=== PATIENT | female | born 1985 | race Caucasian/White ===

== ENCOUNTER 2016-07-25 12:49 | Outpatient (CLI) | payer MEDICAID | END 2016-07-25 12:50 | disposition home or self-care (01) | DX: R20.8 Other disturbances of skin sensation (principal); E55.9 Vitamin D deficiency, unspecified; I73.81 Erythromelalgia ==

== ENCOUNTER 2017-07-03 09:21 | Outpatient (CLI) | payer MEDICAID | END 2017-07-03 09:22 | disposition critical access hospital (66) | LOC: EMS 09:21 | PROVIDERS: ATTEND Surgery | DX: F41.9 Anxiety disorder, unspecified (principal) | CPT/HCPCS: A0425; A0429 ==

== ENCOUNTER 2017-11-01 08:51 | Outpatient (CLI) | payer OTHER ==
--- NOTE | 2017-11-01 10:52 | XRAY Report ---
3-VIEW LUMBAR SPINE: 11/01/2017 CLINICAL INDICATION: Muscle strain. COMPARISON: 11/19/2010. FINDINGS: AP, lateral, cone down views of the lumbar spine demonstrate normal height and alignment of the vertebral bodies. The disk spaces are preserved. There is no evidence of interval fracture. Minimal facet arthropathy is seen. IMPRESSION: MINIMAL FACET ARTHROPATHY. NO EVIDENCE OF FRACTURE OR SUBLUXATION. TD: 11/01/2017 10:51
== END 2017-11-01 08:52 | disposition home or self-care (01) ==
LOC: DI.N 08:51
PROVIDERS: ATTEND Nurse Practitioner
DX: S39.012A Strain of muscle, fascia and tendon of lower back, initial encounter (principal); M54.89 Other dorsalgia
CPT/HCPCS: 72100

== ENCOUNTER 2018-09-19 10:28 | Outpatient (CLI) | payer MEDICAID ==
--- NOTE | 2018-09-19 13:48 | Mammography Report ---
Reason: BREAST PAIN, LEFT Procedure Date: 09/19/2018 Accession Number: [id number] / [id number] Procedure: THERESA - Diagnostic Dig Bilat CPT Code: FULL RESULT: EXAM: Diagnostic Dig Bilat DATE: 09/19/2018 12:38 PM CLINICAL HISTORY: Diagnostic exam. History of early menses and late childbearing. History of right breast lumpectomy, benign pathology. The patient presents with pain and a palpable abnormality in the left breast. TECHNIQUE: Bilateral CC, exaggerated CC, MLO and left MLO views are obtained. Focused breast ultrasound is performed of the left and of the right breast. COMPARISON: Baseline mammogram. FINDINGS: The breasts demonstrate extremely dense parenchyma bilaterally, limiting the sensitivity of mammography. Left breast: Corresponding to the palpable marker in the left breast at 3:00 approximately 3 cm from the nipple is a 0.9 cm isodense relatively well-circumscribed nodule which demonstrates well-circumscribed borders, hypoechoic echotexture and vascularity on ultrasound, as tall as wide, suspicious. The finding is seen on 3-D MLO slice 8 and 3-D C6/7. Additionally, left breast ultrasound reveals a 1:00 lobulated wider than tall hypoechoic mass with internal vascularity 4 cm from the nipple which demonstrates an ill-defined margin inferiorly, suspicious. Furthermore, left breast ultrasound at 7:00 and 3 cm from the nipple demonstrates a gently lobulated hypoechoic 0.8 x 0.6 cm mass, possibly a lymph node, suspicious. Right breast: There is a isodense well-circumscribed mass at 9:00, 3.3 cm from the nipple which measures 2.9 x 2.7 cm on MLO slice 9 and cc slice 11 by 3-D imaging. Focused right breast ultrasound demonstrates a wider than tall hypoechoic gently lobulated vascular mass measuring up to 2.7 cm which corresponds to the mammographic finding, suspicious. IMPRESSION: Suspicious abnormality. RECOMMENDATION: Ultrasound-guided biopsy of the right breast 9:00 mass. Ultrasound-guided biopsy of the left breast at 3 sites as above. BIRADS CATEGORY 4 STANDARD QUALIFYING STATEMENTS: 1. This examination was not reviewed with the aid of Computer-Aided Detection (CAD). 2. A negative or benign imaging report should not delay biopsy if clinically suspicious findings are present. Consider surgical consultation if warrented. More than 5% of cancers are not identified by imaging. 3. Dense breasts may obscure an underlying neoplasm. 4. This examination was reviewed with the aid of 3D imaging (tomography). The patient has been scheduled to undergo biopsy the next day, 09/20/2018 following discussion with the patient's physician Dr. Zambrano.
== END 2018-09-19 10:29 | disposition home or self-care (01) ==
LOC: DI 10:28
PROVIDERS: ATTEND Obstetrics & Gynecology
DX: N64.4 Mastodynia (principal)
CPT/HCPCS: 76642; 77066

== ENCOUNTER 2018-09-20 13:46 | Outpatient (CLI) | payer MEDICAID ==
[2018-09-20] MEDS ORDERED: BUFFERED LIDOCAINE 10 ML SYRINGE ONE (14:02)
[2018-09-20] MEDS ORDERED: BUPIVACAINE 0.5%-EPI 1:200000 PF 10 ML VIAL ONE (14:04)
--- NOTE | 2018-09-20 17:01 | Mammography Report ---
Reason: BILATERAL POST CLIP IMAGES Procedure Date: 09/20/2018 Accession Number: [id number] / [id number] Procedure: THERESA - Diagnostic Dig Bilat CPT Code: FULL RESULT: PROCEDURE: Ultrasound-guided needle biopsy right and left breast mass. CLINICAL DATA: Targeted mass measuring 2.9 cm with smooth margins in the 9 o'clock axis of the right breast. Informed consent was obtained. Using standard aseptic technique, both 1% buffered lidocaine and Sensorcaine were injected into the right breast for local anesthesia. A small zain was made in the skin with a #11 blade. A 12-gauge Celero vacuum-assisted device was used to obtain 3 specimens. A specialized biopsy marker clip was placed into the biopsy cavity under ultrasound guidance. Targeted mass measuring 0.9 cm with smooth margins in the 3 o'clock axis of the left breast. Using standard aseptic technique, both 1% buffered lidocaine and Sensorcaine were injected into the left breast for local anesthesia. A small zain was made in the skin with a #11 blade. A 12-gauge Celero vacuum-assisted device was used to obtain 2 specimens. A specialized biopsy marker clip was placed into the biopsy cavity under ultrasound guidance. Targeted mass measuring 1.4 cm with smooth margins in the 1 o'clock axis of the left breast. Using standard aseptic technique, both 1% buffered lidocaine and Sensorcaine were injected into the left breast for local anesthesia. A small zain was made in the skin with a #11 blade. A 12-gauge Celero vacuum-assisted device was used to obtain 2 specimens. A specialized biopsy marker clip was placed into the biopsy cavity under ultrasound guidance. The patient was taken to separate mammography machine and a two-view digital mammography was performed to verify the clip placement and any complications. The mammography showed concordant clip placement. The wound was dressed and ice applied. The patient was observed for approximately 15 minutes, then was discharged from diagnostic imaging Department in good condition following instructions on wound care and obtaining biopsy results. The patient is scheduled to receive the biopsy results from the referring physician. The tissue was sent for histologic analysis. A left breast 7:00 previously apparent lesion demonstrated the appearance of musculoskeletal chest wall tissue near the costochondral junction without suspicious features on today's ultrasound. The decision was made not to perform biopsy at this site. IMPRESSION: Ultrasound-guided biopsy of the right and left breast. AN ADDENDUM WILL BE MADE TO THIS REPORT WHEN PATHOLOGY IS REVIEWED TO ESTABLISH CONCORDANCE.
[2018-09-20] MEDS ORDERED: BUPIVACAINE 0.5%-EPI 1:200000 PF 10 ML VIAL SUBQ ONE (17:22)
[2018-09-20] MEDS ORDERED: BUFFERED LIDOCAINE 10 ML SYRINGE IU ONE (17:33)
== END 2018-09-20 13:47 | disposition home or self-care (01) ==
LOC: DI 13:46
PROVIDERS: ATTEND Obstetrics & Gynecology
DX: N60.12 Diffuse cystic mastopathy of left breast (principal); N60.11 Diffuse cystic mastopathy of right breast
CPT/HCPCS: 19083; 19084; 77066

== ENCOUNTER 2020-08-10 08:00 | Outpatient (CLI) | payer BC, MEDICAID ==
[2020-08-11 10:11] LABS: MUDS CUTOFF CONCENTRATIONS CUTOFF CONC BELOW:
[2020-08-11 10:29] LABS: BILIRUBIN,URINE NEGATIVE (NEGATIVE); GLUCOSE, URINE (UA) NEGATIVE (NEGATIVE); KETONES,URINE (UA) NEGATIVE (NEGATIVE); LEUKOCYTE ESTERASE, URINE NEGATIVE (NEGATIVE); NITRITE,URINE NEGATIVE (NEGATIVE); OCCULT BLOOD,URINE NEGATIVE (NEGATIVE); PROTEIN,URINE NEGATIVE (NEGATIVE); UROBILINOGEN,URINE 0.2 (NORMAL) E.U./dL (NORMAL)
[2020-08-11 10:35] LABS: CLARITY,URINE CLOUDY (CLEAR)
[2020-08-11 10:57] LABS: BACTERIA,URINE Few /HPF (None Seen); RBC,URINE 0-5 /HPF (0-5); SQUAMOUS EPITHELIAL CELL,UR FEW Squamous (<= Few)
[2020-08-11 11:06] LABS: AMPHETAMINE SCREEN,URINE NEGATIVE (NEGATIVE); BENZODIAZEPINES SCREEN, URINE NEGATIVE (NEGATIVE); COCAINE SCREEN URINE NEGATIVE (NEGATIVE); METHADONE SCREEN, URINE NEGATIVE (NEGATIVE); METHAMPHETAMINES SCREEN, URINE NEGATIVE (NEGATIVE); OPIATE SCREEN, URINE NEGATIVE (NEGATIVE); OXYCODONE SCREEN, URINE NEGATIVE (NEGATIVE); PROPOXYPHENE SCREEN, URINE NEGATIVE (NEGATIVE); TRICYCLIC ANTIDEPRESSANT,URINE NEGATIVE (NEGATIVE)
== END 2020-08-10 23:59 | disposition home or self-care (01) ==
LOC: LAB.R 08:00
PROVIDERS: ATTEND Obstetrics & Gynecology
DX: Z32.01 Encounter for pregnancy test, result positive (principal)
CPT/HCPCS: 80306; 81001; 87086

== ENCOUNTER 2020-08-17 16:57 | Outpatient (CLI) | payer MEDICAID, BC ==
--- NOTE | 2020-08-18 15:50 | Ultrasound Report ---
PROCEDURE: OB First Trimester w/TV INDICATIONS: POSITIVE TEST OUTSIDE/PRIOR DATING DATA: Last menstrual period (LMP): 07/06/2020. LMP-based estimated date of delivery (ALINA): 04/12/2021. First dating scan (date and location): 08/17/2020. Estimated date of delivery (ALINA) from first dating scan: 04/11/2021. TECHNIQUE: Real-time scanning was performed of the fetus and maternal pelvic organs, with image documentation. Endovaginal scanning was also performed to better visualize the fetus and maternal ovaries. COMPARISON: None FINDINGS: Embryo: Single live intrauterine with crown-rump length measuring 4 mm corresponding to ul trasound gestational age of 6 weeks 1 day. heart rate is identified at 113 bpm. Small subchorio jovita hemorrhage is present measuring 13 x 13 mm. Measurement variability in dating: +/- 4 weeks by LMP, +/- 7 days by mean sac diameter (use before 6 weeks gestation if crown-rump length not able to be measured), +/- 5 days by crown-rump length (6-12 weeks gestation). Maternal organs: Ovaries demonstrate a right corpus luteal cyst.. IMPRESSION: 1. Single live intrauterine with ultrasound gestational age of 6 weeks 1 day. 2. Recommend follow-up imaging at 20-22 weeks for dates and anatomy. Reviewed by: Avelina Angeles MD on 08/18/2020 2:48 PM [place] Approved by: Avelina Angeles MD on 08/18/2020 2:48 PM [facility] Station ID: [id number]
== END 2020-08-17 16:58 | disposition home or self-care (01) ==
LOC: DI 16:57
PROVIDERS: ATTEND Obstetrics & Gynecology
DX: Z32.01 Encounter for pregnancy test, result positive (principal)

== ENCOUNTER 2020-09-01 08:00 | Outpatient (CLI) | payer BC, MEDICAID ==
[2020-09-01 21:45] LABS: CHLAMYDIA TRACHOMATIS DNA NEGATIVE (NEGATIVE); NEISSERIA GONORRHOEAE DNA NEGATIVE (NEGATIVE); TRICHOMONAS VAGINALIS DNA NEGATIVE (NEGATIVE)
== END 2020-09-01 23:59 | disposition home or self-care (01) ==
LOC: LAB.R 08:00
PROVIDERS: ATTEND Obstetrics & Gynecology
DX: Z11.3 Encounter for screening for infections with a predominantly sexual mode of transmission (principal)
CPT/HCPCS: 87491; 87591; 87661

== ENCOUNTER 2020-09-15 08:43 | Outpatient (CLI) | payer MEDICAID ==
[2020-09-15 09:18] LABS: BASOPHILS % (AUTO) 0.4 %; EOSINOPHILS # (AUTO) 0.1 10^3/uL (0.0-0.7); EOSINOPHILS % (AUTO) 0.9 %; HCT - HEMATOCRIT 36.5 % (37.0-47.0); HGB - HEMOGLOBIN 12.2 g/dL (12.0-16.0); LYMPHOCYTES % (AUTO) 28.4 %; MEAN CORPUSCULAR HEMOGLOBIN 29.9 pg (27.0-31.0); MEAN CORPUSCULAR HGB CONC 33.4 g/dL (32.0-36.0); MEAN CORPUSCULAR VOLUME 89.5 fL (81.0-99.0); MEAN PLATELET VOLUME 11.7 fL (7.9-10.8); MONOCYTES # (AUTO) 0.5 10^3/uL (0.0-1.0); NEUTROPHILS # (AUTO) 4.4 10^3/uL (1.5-6.6); NEUTROPHILS % (AUTO) 63.2 %; PLT - PLATELET COUNT 224 10^3/uL (130-450); RED BLOOD COUNT 4.08 10^6/uL (4.20-5.40); RED CELL DISTRIBUTION WIDTH 13.2 % (12.0-15.0)
[2020-09-16 13:02] LABS: HEPATITIS B SURFACE ANTIGEN NON-REACTIVE (NON-REACTIVE); HEPATITIS C ANTIBODY NON-REACTIVE (NON-REACTIVE)
[2020-09-16 14:37] LABS: HIV AG/AB 4TH GEN NON-REACTIVE (NON-REACTIVE)
== END 2020-09-15 08:44 | disposition home or self-care (01) ==
LOC: LAB 08:43
PROVIDERS: ATTEND Obstetrics & Gynecology
DX: Z36.89 Encounter for other specified antenatal screening (principal); Z36.8A Encounter for antenatal screening for other genetic defects; Z31.5 Encounter for procreative genetic counseling
CPT/HCPCS: 36415; 81220; 81243; 81329; 81599; 85025; 86592; 86762; 86787; 86803; 86850; 86900; 86901; 87340; 87389

== ENCOUNTER 2020-10-30 13:57 | Outpatient (CLI) | payer MEDICAID | END 2020-10-30 13:58 | disposition home or self-care (01) | LOC: LAB 13:57 | PROVIDERS: ATTEND Obstetrics & Gynecology | DX: O09.90 Supervision of high risk pregnancy, unspecified, unspecified trimester (principal) | CPT/HCPCS: 36415; 81599; 82105 ==

== ENCOUNTER 2020-12-15 08:00 | Outpatient (CLI) | payer MEDICAID ==
[2020-12-15 13:48] LABS: BILIRUBIN,URINE NEGATIVE (NEGATIVE); GLUCOSE, URINE (UA) NEGATIVE (NEGATIVE); KETONES,URINE (UA) NEGATIVE (NEGATIVE); LEUKOCYTE ESTERASE, URINE NEGATIVE (NEGATIVE); NITRITE,URINE NEGATIVE (NEGATIVE); OCCULT BLOOD,URINE NEGATIVE (NEGATIVE); PROTEIN,URINE NEGATIVE (NEGATIVE); UROBILINOGEN,URINE 0.2 (NORMAL) E.U./dL (NORMAL)
[2020-12-15 13:56] LABS: BACTERIA,URINE Moderate /HPF (None Seen); CLARITY,URINE CLEAR (CLEAR); MUCUS,URINE Few Strands; RBC,URINE None Seen /HPF (0-5); SQUAMOUS EPITHELIAL CELL,UR MOD Squamous (<= Few); WBC,URINE 0-3 /HPF (0-5)
== END 2020-12-15 23:59 | disposition home or self-care (01) ==
LOC: LAB.R 08:00
PROVIDERS: ATTEND Obstetrics & Gynecology
DX: O09.90 Supervision of high risk pregnancy, unspecified, unspecified trimester (principal); O99.891 Other specified diseases and conditions complicating pregnancy; R10.2 Pelvic and perineal pain
CPT/HCPCS: 81001; 87086

== ENCOUNTER 2021-01-27 08:05 | Outpatient (CLI) | payer MEDICAID ==
[2021-01-27 09:36] LABS: HCT - HEMATOCRIT 32.8 % (37.0-47.0); HGB - HEMOGLOBIN 10.6 g/dL (12.0-16.0); MEAN CORPUSCULAR HEMOGLOBIN 30.1 pg (27.0-31.0); MEAN CORPUSCULAR HGB CONC 32.3 g/dL (32.0-36.0); MEAN CORPUSCULAR VOLUME 93.2 fL (81.0-99.0); MEAN PLATELET VOLUME 11.7 fL (7.9-10.8); RED BLOOD COUNT 3.52 10^6/uL (4.20-5.40); RED CELL DISTRIBUTION WIDTH 14.4 % (12.0-15.0); WHITE BLOOD COUNT 12.1 x10^3/uL (4.8-10.8)
== END 2021-01-27 08:06 | disposition home or self-care (01) ==
LOC: LAB 08:05
PROVIDERS: ATTEND Obstetrics & Gynecology
DX: O09.90 Supervision of high risk pregnancy, unspecified, unspecified trimester (principal); Z36.8A Encounter for antenatal screening for other genetic defects
CPT/HCPCS: 36415; 82950; 85027

== ENCOUNTER 2021-02-05 15:32 | Outpatient (CLI) | payer MEDICAID ==
[2021-02-05 16:04] VITALS: BP 108/70
--- NOTE | 2021-02-05 16:04 | SLEEP CARE CONSULTATION ---
Information from patient questionnaire entered by Rhiannon Fatima. I have reviewed and concur with the information entered by Rhiannon Fatima. This document represents the service I personally performed and the decisions made by me, Cinda Beavers ARNP. History of Present Illness Service Date and Time: 02/05/2021 1532 Reason for Visit: New patient, Re-[facility] (last seen 2015) Chief Complaint: reports: Snoring, Excessive daytime sleepiness, Observed pauses in breathing. denies: Unrefreshed sleep, Frequent awakenings at night Date of Onset: snoring, always - pause in breathing - Usual bedtime: 9-10 pm Time it takes to fall asleep: 1 hour Snores at night: Yes Observed to quit breathing while asleep: Yes Sleeps alone due to snoring: No Number of times waking at night: 1 Reasons for waking at night: reports: Bathroom. denies: Choking, Gasping for air Toss, Turn, or Twitch while sleeping: Yes Recalls having dreams: No Usually gets out of bed at: 5:30 am Feels refreshed in the morning: Yes Morning headache: No Sleepy or fatigued during the day: Yes Ever fallen asleep while driving: No (no drowsy driving) Takes day naps: No Dreams during day naps: No Prior sleep studies: Yes Year and Where: 2015 (PSG - negative)- [facility] Additional HPI information: I had the pleasure of seeing HANY MUSTAFA today regarding the possibility of her having a sleep disorder. Her current complaints are snoring always and pause in breathing. Patient is 7 months . She states she has always snored. Her current boyfriend is concerned because he has seen her stop breathing while sleeping. He has counted 10 seconds when she has stopped breathing. He has not noted any gasping or choking in her sleep. She normally feels rested in the morning but can feel tired during the day. She last had a sleep study about 5 years ago that was negative. She was 3 month at that time. Her son after 5 days of life due to SIDS. Her mother snores loudly and she thinks her father snored lightly too. No family history of sleep disordered breathing. 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 Patient is and lives in [place]. Have you smoked in the past 12 months: Yes Cigarettes per day (20/pack): 10 Years of smokin Smoking Pack Years: 8.0 Alcohol use: No Caffeine use: Yes Caffeine amount and frequency: sometimes Family History Family history of sleep disordered breathing: Yes Family Hx Sleep Apnea: Mother: Snoring, Father: Snoring Allergies and Home Medications Drug allergies reviewed: Yes (indomethacin; pyridium) Home medication list reviewed: Yes Allergy and home medication list: vitamins Tylenol PM, 2 nightly Omeprazole Vitamin C Iron Review of Systems Cardiovascular: reports: leg or foot swelling. denies: high blood pressure Gastrointestinal: reports: heartburn Ear/Nose/Throat: reports: dry mouth/throat (waking up), injury to nose (broken as a child, left side hard to breathe through), tonsillectomy, wisdom teeth removed Physical Exam Blood Pressure: 108/70 Cuff size: wrist Heart Rate: 96 O2 Saturation: 99 Height: 5 ft 8 in Weight: 199 lb Body Mass Index: 30.2 BMI Classification: Obese Neck circumference: 13 (inches) Nostrils: partially obstructed Mouth and throat: narrow oropharynx Soft palate: long Hard palate: normal Uvula visualization: 25% Mallampati Class III Tongue: enlarged in size with teeth powell on lateral edges Tonsils: absent bilaterally Neck: normal w/o lymphadenopathy or thyromegaly Heart: regular rate and rhythm, murmur Lungs: clear bilaterally Impression and Plan 1. Suspected Obstructive Sleep Apnea-Hypopnea Syndrome, as suggested by a history of loud and irregular snoring, observed cessation of breath while asleep, cognitive impairment, and excessive daytime sleepiness. Narrow oropharynx and obesity are common predisposing factors for obstructive sleep apnea-hypopnea syndrome. Patient has had a negative study 5 years ago but presents today 7 months and concerned about pauses in breathing/snoring. I recommend proceeding to polysomnography to confirm the diagnosis and to assess severity. If the patient has significant sleep disordered breathing, a manual CPAP titration study will also be performed to find the optimal treatment pressure. I informed the patient of what the sleep st udies involve and after some discussion, obtained agreement to proceed. The pathophysiology of obstructive sleep apnea-hypopnea syndrome was discussed with the patient and health risks of cardiovascular and cerebrovascular disease if not treated. Risks of drowsy driving discussed in detail and patient advised to avoid long distance driving and to well puller head at the first sign of drowsiness. Patient agreed to plan. * Schedule polysomnography +- manual CPAP titration study and return in 1-2 weeks after the study to discuss result and initiate therapy. * Avoid long distance driving or driving when feeling sleepy. * Avoid alcohol, sedative and muscle relaxant around bedtime. * Maintain a healthy weight during * Review instructions provided by trained office staff on how to prepare for the sleep study. * Return for follow-up after sleep study completed. Counseling Topics: Weight loss health impact Visit Type: In Office Time Spent with Patient (minutes): 25 Provider Statement: I spent 100% of the Face to Face Visit with the patient with greater than 50% spent counseling the patient and coordination of care.
== END 2021-02-05 15:33 | disposition home or self-care (01) ==
LOC: SC 15:32
PROVIDERS: ATTEND Nurse Practitioner Family
DX: G47.10 Hypersomnia, unspecified (principal); R06.83 Snoring; R06.81 Apnea, not elsewhere classified; R41.89 Other symptoms and signs involving cognitive functions and awareness; E66.9 Obesity, unspecified; Z68.30 Body mass index [BMI] 30.0-30.9, adult; F17.210 Nicotine dependence, cigarettes, uncomplicated
CPT/HCPCS: 99202; 99212

== ENCOUNTER 2021-02-10 07:56 | Outpatient (CLI) | payer MEDICAID ==
[2021-02-10 08:33] LABS: GTT GLUCOSE,FASTING 94 mg/dL (70-100)
== END 2021-02-10 07:57 | disposition home or self-care (01) ==
LOC: LAB 07:56
PROVIDERS: ATTEND Obstetrics & Gynecology
DX: O99.810 Abnormal glucose complicating pregnancy (principal)
CPT/HCPCS: 36415; 82951; 82952

== ENCOUNTER 2021-02-10 14:30 | Outpatient (CLI) | payer MEDICAID | END 2021-02-10 14:31 | disposition home or self-care (01) | LOC: SC 14:30 | PROVIDERS: ATTEND Nurse Practitioner Family | DX: G47.33 Obstructive sleep apnea (adult) (pediatric) (principal); R00.0 Tachycardia, unspecified | CPT/HCPCS: 95806 ==

== ENCOUNTER 2021-02-19 15:39 | Outpatient (CLI) | payer MEDICAID ==
--- NOTE | 2021-02-19 16:08 | SLEEP CARE CONSULTATION ---
Information from patient questionnaire entered by Rhiannno Fatima. I have reviewed and concur with the information entered by Rhiannon Fatima. This document represents the service I personally performed and the decisions made by , Cinda Beavers ARNP. History of Present Illness Service Date and Time: 02/19/20211538 Initial [place] Sleepiness Scale score: 5 (in 2016) Current [place] Sleepiness Scale score: 8 Additional HPI information: HANY MUSTAFA returns for follow up and results of the recently performed home sleep study. I explained the pathophysiology behind obstructive sleep apnea. We then spent quite a bit of time discussing different treatment options. For mild obstructive sleep apnea, surgery and oral appliance are alternatives to nasal CPAP therapy but in moderate or severe cases, nasal CPAP is the most effective and reliable treatment. Because apnea is primarily in supine position, then positional management therapy could be effective. Methods discussed such as positioning with pillows, using a T-shirt with tennis balls in the back, and shown commercial products that have a pillow format on back to prevent supine sleep. I reviewed the impact of weight changes on sleep apnea and strongly recommended losing weight. After some discussion, the patient opted to go with the nasal CPAP therapy. Nasal autoCPAP set at 4-15 cmH20 will be ordered with rationale explained. A manual titration study will be ordered if unable to find optimal pressure with office adjustments. I explained how CPAP machine works with sample devices [employer] Dreamstation and 1spire [id number] and what to expect when using the machine. Using CPAP every night in order to get used to it was emphasized. Patient advised to put CPAP mask on before getting into bed so as not to fall asleep without CPAP. To assist acclimation to CPAP use, it could also be used for a short time during day while reading or watching TV. The patient was instructed to call the CPAP supplier to discuss any mechanical problem that may occur. If the mask given is uncomfortable or is difficult to keep on through the night even with adjustment, contact the CPAP supplier as many will replace with another mask style if notified before 30 days. If snoring or perceives is not getting enough air or too much air from the machine, notify this office. AAS patient education PAP tips reviewed and given to patient. Patient does not drink alcohol. Patient was cautioned about risks of drowsy driving until sleepiness symptoms resolve. Sleep Study - Results Type of Sleep Study: Home sleep study [facility] sleep studies: Yes [facility] and [facility] Sleep Study results: Physician Impression: The quality of the study is fair due to partial loss of airflow signal.. The length of the study is adequate (> 240 minutes). Please also see the tabulated and graphic data. 1. Obstructive Sleep Apnea-Hypopnea (ICD-10 G47.33), moderate, with an AHI of 24.2/hr and kt SaO2 of 91%. During the study, the patient had 36 apneas (36 obstructive, 0 central, 0 mixed) and 10 hypopneas. The longest episode lasted 102.5 seconds. The patient did not sleep supine during this study (supine AHI was 0.0 and non-supine, 24.30). 2. Tachycardia, with maximum recoded heart rate of 126 beats per minute. Allergies and Home Medications Home medication list reviewed: Yes (no changes) Review of Systems Review of systems same as previous: Yes (no changes) Physical Exam Heart Rate: 107 O2 Saturation: 98 Height: 5 ft 8 in Weight: 200 lb Body Mass Index: 30.4 BMI Classification: Obese Impression and Plan 1. Obstructive Sleep Apnea-Hypopnea Syndrome, moderate, with lowest oxygen saturation of 91%. Obviously this is the cause of the patients symptoms of unrefreshed sleep, and excessive daytime sleepiness. Positive pressure therapy could benefit anxiety. Patient is due in about 6 weeks to have her baby. I will like to set up her CPAP urgently so that she can get the best benefit during her last month. We can retest her after she has the baby, especially if she feels as if the pressure is too much. We will revisit this in later appointments. As mentioned above, the patient will be started on nasal autoCPAP therapy with pressure set at 4-15 cmH2O. Compliance guidelines also reviewed. A copy of compliance guidelines will be given for reference at check out. * Nasal auto CPAP therapy, pressure at 4-15 cm H2O. * Maintain a healthy weight during . * Avoid alcohol consumption near bedtime. * Avoid supine sleep until using CPAP. * The patient is again cautioned about driving until sleepiness completely resolves. * Return one month after CPAP obtained. I will assess response to therapy and compliance at that time. Counseling Topics: Weight control Visit Type: In Office Time Spent with Patient (minutes): 16 Provider Statement: I spent 100% of the Face to Face Visit with the patient with greater than 50% spent counseling the patient and coordination of care.
== END 2021-02-19 15:40 | disposition home or self-care (01) ==
LOC: SC 15:39
PROVIDERS: ATTEND Nurse Practitioner Family
DX: G47.33 Obstructive sleep apnea (adult) (pediatric) (principal); R00.0 Tachycardia, unspecified; E66.9 Obesity, unspecified; Z68.30 Body mass index [BMI] 30.0-30.9, adult
CPT/HCPCS: 99212

== ENCOUNTER 2021-03-17 08:00 | Outpatient (CLI) | payer MEDICAID | END 2021-03-17 23:59 | disposition home or self-care (01) | LOC: LAB.WC 08:00 | PROVIDERS: ATTEND Obstetrics & Gynecology | DX: Z36.85 Encounter for antenatal screening for Streptococcus B (principal) | CPT/HCPCS: 87797 ==

== ENCOUNTER 2021-04-02 12:52 | Outpatient (CLI) | payer MEDICAID | END 2021-04-02 12:53 | disposition home or self-care (01) | LOC: COV 12:52 | PROVIDERS: ATTEND Obstetrics & Gynecology | DX: Z01.812 Encounter for preprocedural laboratory examination (principal); O34.211 Maternal care for low transverse scar from previous cesarean delivery; O24.919 Unspecified diabetes mellitus in pregnancy, unspecified trimester; Z20.822 Contact with and (suspected) exposure to COVID-19 ==

== ENCOUNTER 2021-04-05 06:32 | Inpatient (IN) | payer MEDICAID ==
[2021-04-05] MEDS ORDERED: LACTATED RINGERS 1,000 ML IV ONE ×2 (07:10→13:22)
[2021-04-05] MEDS ORDERED: LACTATED RINGERS 1,000 ML IV SCH ×3 (08:00→17:00)
[2021-04-05 08:06] LABS: BASOPHILS % (AUTO) 0.3 %; EOSINOPHILS # (AUTO) 0.1 10^3/uL (0.0-0.7); EOSINOPHILS % (AUTO) 0.6 %; HCT - HEMATOCRIT 31.7 % (37.0-47.0); HGB - HEMOGLOBIN 10.2 g/dL (12.0-16.0); LYMPHOCYTES # (AUTO) 3.2 10^3/uL (1.5-3.5); LYMPHOCYTES % (AUTO) 27.5 %; MEAN CORPUSCULAR HGB CONC 32.2 g/dL (32.0-36.0); MEAN CORPUSCULAR VOLUME 87.1 fL (81.0-99.0); MEAN PLATELET VOLUME 13.2 fL (7.9-10.8); MONOCYTES # (AUTO) 0.9 10^3/uL (0.0-1.0); MONOCYTES % (AUTO) 8.2 %; NEUTROPHILS # (AUTO) 7.3 10^3/uL (1.5-6.6); NEUTROPHILS % (AUTO) 63.1 %; PLT - PLATELET COUNT 183 10^3/uL (130-450); RED BLOOD COUNT 3.64 10^6/uL (4.20-5.40); RED CELL DISTRIBUTION WIDTH 13.8 % (12.0-15.0); WHITE BLOOD COUNT 11.5 x10^3/uL (4.8-10.8)
--- NOTE | 2021-04-05 08:26 | PROVIDER PROGRESS NOTE ---
- HPI Chief Complaint: Other (Contractions every 6 minutes upon presentation.) Current : Current EDU 04/12/21 Gestation 39 Weeks and 0 Days 2 Para 1 Vital Signs Temperature 98.2 F 04/05/21 06:52 Heart Rate 83 04/05/21 06:52 Respiratory Rate 20 04/05/21 06:52 Blood Pressure 134/70 H 04/05/21 06:52 O2 Saturation 99 04/05/21 06:52 Temperature 98.2 F 04/05/21 06:53 Heart Rate 83 04/05/21 06:52 Respiratory Rate 20 04/05/21 06:52 Blood Pressure 134/70 H 04/05/21 06:52 O2 Saturation 99 04/05/21 06:52 - Exam 35 yo at 39 0/7 weeks presented to labor and delivery with contractions. Patient states she contracted all day yesterday. Patient reports good movement. Patient denies SROM or vaginal bleeding. Patient was scheduled for repeat tomorrow 04/06/21. Patient states she is an every day 1/2 pack a day smoker. Patient ate 2 chimichangas somewhere between 3:45 and 5:00 this morning. O- General: Patient is resting on her side on the stretcher. Patient is not in acute distress. Patient is having pain with contractions, intermittently. Chest: Clear to auscultation. Good breath sounds in all carmona. Heart: RRR without murmur or gallop. Abdomen: Soft, non-tender to palpation. Good bowel sounds in all quadrants. Extremities: No edema, no calf tenderness NST: Baseline 140 with moderate variability and Accelerations 15X15 are present. Contractions have spaced out and irritability pattern is present. Category I monitor strip. Reactive NST. A-IUP 39 0/7 GBS Positive, Repeat Section. Prior times one. P- Admit. IV hydration. NPO, IV Ampicillin for GBS. Repeat this afternoon or sooner if contractions become more intense. Sugery aware of patient's status. Anesthesia is aware of patient's status. Patient consented to repeat Toxicology screen today. Patient had negative COVID test on 04/02/21. - Procedures OB Procedure Performed: NST Diagnosis/Indication for NST: Other (Contractions with history of prior Delivery.) Service Date of procedure: 04/05/21
[2021-04-05] MEDS ORDERED: OXYTOCIN 10 UNIT/ML VIAL IM PRN (09:20)
[2021-04-05] MEDS ORDERED: METHYLERGONOVINE 0.2 MG/ML VIAL IM PRN (09:20)
[2021-04-05] MEDS ORDERED: LIDOCAINE-MPF 1% 30 ML VIAL ID PRN (09:20)
[2021-04-05] MEDS ORDERED: miSOPROStoL 200 MCG TABLET BC PRN (09:20)
[2021-04-05] MEDS ORDERED: CARBOPROST TROMETHAMINE 250 MCG/ML AMP IM PRN (09:20)
[2021-04-05] MEDS ORDERED: OXYTOCIN/SODIUM CHLORIDE 500 ML IV PRN ×3 (09:20→16:07)
[2021-04-05] MEDS ORDERED: TRANEXAMIC ACID IN NACL 1,000 MG/100 ML BAG IV PRN (09:20)
--- NOTE | 2021-04-05 09:45 | HISTORY & PHYSICAL EXAMINATION ---
Admit History - Visit Reason Visit Reason: Contractions - : 2 Parity: 1 Premature: 0 Ectopic: 0 : 0 Care: positive: Other ([facility]) Risk/History: positive: Previous , Other (Every day smoker. GBS positive in patient scheduled for repeat .) Complications This : positive: Other Smoking Status: Current every day smoker - Mother's Labs Mother's Blood Type: positive: O Mother's RH: positive: Positive GBS: positive: Group B Strep Positive Rubella Status: positive: Immune - Other Maternal History Other Maternal History: Past surgical history: Appendectomy. Left Breast Lumpectomy. Primary Section 2015 for Breech presentation. Meds/Allgy - Home Medications Home Medications: Ambulatory Orders Medication Instructions Recorded Confirmed Ibuprofen 600 mg PO Q6HR PRN #30 tablet 01/26/15 05/01/15 Omeprazole 20 mg PO DAILY 04/28/15 04/05/21 raNITIdine HCL [Zantac 75] 75 mg PO DAILY PRN 04/28/15 05/01/15 Ibuprofen [Ibuprofen Ib] 800 mg PO Q6HR PRN #30 tab.chew 02/19/16 oxyCODONE/ACET 5/325 [Percocet 5 1 each PO Q6H PRN #30 tablet 02/19/16 mg/325 mg] Lorazepam [Ativan] 1 mg PO Q6HR PRN #20 tablet 02/24/16 Ondansetron Odt [Zofran] 4 mg TL Q6H PRN #10 tablet 02/24/16 - Allergies Allergies/Adverse Reactions: Allergies Allergy/AdvReac Type Severity Reaction Status Date / Time indomethacin Allergy Intermediate Itching Verified 05/01/15 08:40 phenazopyridine HCl * Allergy Unknown Unknown Verified 05/01/15 08:40 [From Pyridium] Review of Systems - Constitutional Constitutional: denies: Fatigue, Weakness - Respiratory Respiratory: denies: Cough, Sputum production, Wheezing - Gastrointestinal Gastrointestinal: denies: Abdominal pain - Genitourinary Genitourinary: denies: Dysuria, Frequency, Urgency - Musculoskeletal Musculoskeletal: denies: Muscle pain - Integumentary Integumentary: denies: Rash, Pruritis - Psychiatric Psychiatric: reports: Anxiety - Endocrine Endocrine: denies: Polyuria - Hematologic/Lymphatic Hematologic/Lymphatic: denies: Anemia, Bruising Physical - Abdominal Exam Vital Signs: Temp Pulse Resp BP Pulse Ox 98.2 F 83 20 134/70 H 99 04/05/21 06:53 04/05/21 06:52 04/05/21 06:52 04/05/21 06:52 04/05/21 06:52 Contraction Frequency (min/apart): Every 6 minutes on arrival. Have significantly spaced out due to IV hydrat Contraction Intensity: positive: Mild to moderate Uterine Resting Tone: positive: Soft - Monitoring Heart Rate Baseline: 140 Strip Review: positive: Category I - Presentation Presentation: positive: Vertex - Vaginal Exam Membranes: positive: Membranes intact Dilation (in cm): closed Effacement (%): [place]: positive: -3 Cervical Position: positive: Posterior - Speculum Exam Speculum Exam Performed: positive: No - Other Notes Labor Progress Note/Additional Text: 35yo at 39 0/7 presented complaining of painful contractions. Patient reports good movement. Patient denies SROM or vaginal bleeding. Patient had previous Section in 2016 for Breech presentation. of SIDS on day 5 of life. Patient has had consistent care with [facility]. Early Ultrasound made EDC 04/12/2021. General: Patient is resting in bed and is having occasional pain with contractions. Alert and oriented times three Chest: Clear to auscultation. Good breath sounds in all carmona. Heart: RRR without murmur or gallop Abdomen: Soft, non-tender to palpation. Gravid. Extremities: No edema, no calf tenderness Neuro: DTR's +2/+4 Monitor: heart tones 140's with moderate variability and accelerations are present. No decelerations. Category I Monitor strip. Reactive NST.\ Discussed with patient performing repeat Section today. Patient is agreeable. Patient made aware Dr. Philippe is not available today. Patient is aware that Dr. Nolasco and Dr. Dean will be performing her repeat Section. A-IUP 39 0/7 with Previous Low Transverse Section for Breech. Contractions. P- Repeat Section, currently planned for 1:00pm. IV Ampicillin now for GBS prophylaxis. Ancef 2 grams to be given pre-operatively. Anesthesia and Surgery are both aware of case.
[2021-04-05] MEDS ORDERED: ceFAZolin 2 GM in SODIUM CHLORIDE 0.9% MINIBAG 100 ML IV SCH (10:00)
[2021-04-05] MEDS ORDERED: fentaNYL 100 MCG/2 ML VIAL IVP ONE (11:00)
[2021-04-05] MEDS ORDERED: AMPICILLIN 2 GM in SODIUM CHLORIDE 0.9% MINIBAG 100 ML IV ONE (11:00)
[2021-04-05] MEDS ORDERED: ONDANSETRON 4 MG/2 ML VIAL IVP ONE ×3 (11:00→13:22)
[2021-04-05 11:03] LABS: MUDS CUTOFF CONCENTRATIONS CUTOFF CONC BELOW:
[2021-04-05 11:13] LABS: AMPHETAMINE SCREEN,URINE NEGATIVE (NEGATIVE); BARBITURATE SCREEN,UR NEGATIVE (NEGATIVE); BENZODIAZEPINES SCREEN, URINE NEGATIVE (NEGATIVE); COCAINE SCREEN URINE NEGATIVE (NEGATIVE); METHADONE SCREEN, URINE NEGATIVE (NEGATIVE); METHAMPHETAMINES SCREEN, URINE NEGATIVE (NEGATIVE); OPIATE SCREEN, URINE NEGATIVE (NEGATIVE); OXYCODONE SCREEN, URINE NEGATIVE (NEGATIVE); PROPOXYPHENE SCREEN, URINE NEGATIVE (NEGATIVE); THC CANNABINOID SCREEN, URINE POSITIVE (NEGATIVE); TRICYCLIC ANTIDEPRESSANT,URINE NEGATIVE (NEGATIVE)
[2021-04-05] MEDS ORDERED: ceFAZolin 2 GM in SODIUM CHLORIDE 0.9% 100ML 100 ML IV SCH (13:00)
[2021-04-05] MEDS ORDERED: OXYTOCIN 10 UNIT/ML VIAL IVP ONE (13:22)
[2021-04-05] MEDS ORDERED: MORPHINE PF 5 MG/10 ML VIAL IT ONE (13:22)
[2021-04-05] MEDS ORDERED: ROPIVACAINE 0.5% PF 20 ML AMPULE EP ONE (13:22)
[2021-04-05] MEDS ORDERED: ePHEDrine 50 MG/ML VIAL IVP ONE (13:22)
--- NOTE | 2021-04-05 13:24 | PROVIDER PROGRESS NOTE ---
Subjective - Prog Note Date Prog Note Date: 04/05/21 Prog Note Time: 13:06 Objective - Vital Signs/Intake & Output Vital Signs: Vital Signs x48h Temp Pulse Resp BP Pulse Ox 04/05/21 11:11 97.9 F 04/05/21 06:53 98.2 F 04/05/21 06:52 98.2 F 83 20 134/70 H 99 Intake & Output: Intake & Output 04/02/21 04/03/21 04/04/21 04/05/21 23:59 23:59 23:59 23:59 Intake Total 1100 Balance 1100 - Lab Results Fish Bones: 04/05/21 07:30 Other Labs: Lab Results x24hrs 04/05/21 04/05/21 04/05/21 Range/Units 10:30 07:30 07:30 WBC 11.5 H (4.8-10.8) x10^3/uL RBC 3.64 L (4.20-5.40) 10^6/uL Hgb 10.2 L (12.0-16.0) g/dL Hct 31.7 L (37.0-47.0) % MCV 87.1 (81.0-99.0) fL MCH 28.0 (27.0-31.0) pg MCHC 32.2 (32.0-36.0) g/dL RDW 13.8 (12.0-15.0) % Plt Count 183 (130-450) 10^3/uL MPV 13.2 H (7.9-10.8) fL Neut # (Auto) 7.3 H (1.5-6.6) 10^3/uL Lymph # (Auto) 3.2 (1.5-3.5) 10^3/uL [place] # (Auto) 0.9 (0.0-1.0) 10^3/uL Eos # (Auto) 0.1 (0.0-0.7) 10^3/uL Baso # (Auto) 0.0 (0.0-0.1) 10^3/uL Absolute Nucleated RBC 0.00 x10^3/uL Nucleated RBC % 0.0 /100WBC Urine Opiates Screen NEGATIVE (NEGATIVE) Ur Oxycodone Screen NEGATIVE (NEGATIVE) Urine Methadone Screen NEGATIVE (NEGATIVE) Ur Propoxyphene Screen NEGATIVE (NEGATIVE) Ur Barbiturates Screen NEGATIVE (NEGATIVE) Ur Tricyclics Screen NEGATIVE (NEGATIVE) Ur Phencyclidine Scrn NEGATIVE (NEGATIVE) Ur Amphetamine Screen NEGATIVE (NEGATIVE) U Methamphetamines Scrn NEGATIVE (NEGATIVE) U Benzodiazepines Scrn NEGATIVE (NEGATIVE) Urine Cocaine Screen NEGATIVE (NEGATIVE) U Cannabinoids Screen POSITIVE H (NEGATIVE) Blood Type O POSITIVE Antibody Screen NEGATIVE
--- NOTE | 2021-04-05 15:31 | DELIVERY NOTE ---
Delivery Note - Infant Delivery Method Infant Delivery Method: positive: Repeat - Presentation Presentation: positive: Vertex, ROP - right occiput posterior - Nuchal Cord Nuchal Cord: positive: None - Anesthetic Anesthetic Type: - Amniotic Fluid Description Amniotic Fluid Description: positive: Moderate meconium - Episiotomy Type Episiotomy Type: positive: None - Laceration Laceration: positive: None - Delivery Outcome Delivery Outcome: positive: Livebirth - [place] : positive: Other ( handed off to Dr. Mccann, manager transmission in attendance.) [place] sex: positive: Female - Placenta Placenta: positive: Manual removal - Estimated Blood Loss Estimated Blood Loss (in cc): 750 - Post Delivery Events Post Delivery Events: positive: No post delivery events - Delivery Comments (Free Text/Narrative) Delivery Comments (Free Text/Narrative): See Operative report for Repeat Low Transverse Section
--- NOTE | 2021-04-05 15:34 | OPERATIVE REPORT ---
Operative Report - General Admit Date: 04/05/21 Procedure Date: 04/05/21 Planned Procedure: Repeat Low Transverse Section. Pre-Op Diagnosis: Previous Low Transverse Section, IUP 39 0/7, Contractions. Procedure Performed: Repeat Low Transverse Section. - Procedure Note Primary Surgeon: Bogdan Nolasco DO Secondary Surgeon: Lio Dean MD Anesthesia Provider: Rhiannon Riggs CRNA Anesthesia Technique: Spinal IV Fluids (mL): 900 Estimated Blood Loss (mL): 750 Urine Output (mL): 125 Indications: Contractions with IUP 39 0/7 and Previous LTCS. Findings: Living female infant, Apgars of 9/9/ Normal Uterus, Normal tubes and ovaries bilaterally. Complications: None - Other Other Information/Narrative: 35 yo at 39 0/7 with contractions and Previous Low Transverse Section. Patient had solid food at 5:00am. Patient was scheduled for 04/06/21, but it was decided that she was in early labor and to perform after 11:00am. OR scheduling gave us a start time of 1:30pm. Patient started basilio at 1:00p, every 3 minutes. Patient was taken to OR and placed in sitting position. Anesthesia placed spinal anesthesia. Patient was placed in supine position. Patient was prepped and draped in the usual sterile fashion. 3 minutes between prep and drape was performed. Patient had been given 2 grams of Ancef IV. Time out was performed. Skin incision was made with scalpel in [place] fashion along previous incision line. Skin incision was carried to fascia with the knife. Fascia was incised in the midline. The left side of fascia was extended with Michel scissors and pick ups with teeth. The right side of the fascia had significant scar tissue and michel scissors were utilized to free up the edges of the fascia in the midline and along the inferior edge of the fascia. Brookesmith kochers were placed in the midline. Blunt and sharp dissection were utilized to dissect the fascia from the rectus muscles. The rectus muscles were identified and there was scarring in the midline. Hemostats were used on the superior aspect of the rectus muscles to separate them in the midline. Hemostats were utlized to elevate the peritoneum. Metzenbaum scissors were utilized to incise the peritoneum between the hemostats. The peritoneal cavity was extended with blunt dissection. The uterus was checked for proper rotation which was present. The lower uterine segment was identified. A bladder flap was created with [place] pick ups and Metenbaum scissors. The bladder blade was removed and replaced to include the newly created bladder flap. The uterine incision was made in a low transverse fashion. Moderate medconium was present in the amniotic fluid. The uterine incision was extended with blunt dissection in caudal fashion. 's head was grasped with surgeon's hand and elevated, suction was broken and fundal pressure applied. There was occult cord present. Head delivered in ROP position. Remainder of infant delivered spontaneously. Living female with Apgars of 9/9. A segment of cord was collected for toxicology. Cord blood was obtained. Pitocin was started in IV. Placenta was grasped and manually removed from uterus. Uterus was externalized from abdominal cavity. Uterus was wiped clean with warm, moist lap. Uterus was wrapped in warm, moist lap. 0-Vicryl in running interlocking fashion was utilized to close the uterine cavity. 0-Vicryl in running, embricating fashion was utilized to embricate uterine incision. One figure of 8 to the right 1/3 of the incision was placed for hemostasis. Good hemostasis was present. Irrigation was performed. The cul-de-sac was inspected and irrigated. The uterus was returned to the abdominal cavity. The uterine incision was re-inspected and found to be hemostatic. Pericolic gutters were both inspected and irrigated. Hemostasis was present. The edges of peritoneum were grasped with 3 hemostats. 2-0 Vicryl in a running fashion was utilized to close the peritoneum. Irrigation of muscle bellies was performed. There was a small piece of rectus muscle that was clamped and removed. It was tied with 0- Chromic. The fascia was closed with 0-Vicryl in a running fashion. Good approximation was present. Irrigation of subcutaneous tissue was performed. 3- 0 Vicryl in a running fashion to approximate the subcutaenous tissue was utilized. Bovie was utilized to cauterize small bleeders. 3-0 Monocryl was utilized in a subcuticular fashion to close the skin. Steri-strips were placed. Telfa and ABD placed with tape. Lap, needle and instrument counts were correct times 3. EBL is 750cc. Anesthesia placed Duromorph and block to assist with pain control. Mother and infant are doing well and in stable condition.
[2021-04-05] MEDS ORDERED: SODIUM CHLORIDE FLUSH 0.9% 10 ML SYRINGE IVP PRN (16:07)
[2021-04-05] MEDS ORDERED: ONDANSETRON ODT 4 MG TABLET TL PRN (16:07)
[2021-04-05] MEDS ORDERED: SIMETHICONE CHEW 80 MG TABLET PO PRN (16:07)
[2021-04-05] MEDS: KETOROLAC 15 MG/ML VIAL IVP SCH ×2 (17:50→23:50)
[2021-04-05] MEDS: ACETAMINOPHEN 500 MG TABLET PO SCH (20:00)
[2021-04-05] MEDS: oxyCODONE 5 MG TABLET PO PRN (20:00)
[2021-04-05] MEDS: DOCUSATE SODIUM 100 MG CAPSULE PO SCH (20:24)
[2021-04-05] MEDS ORDERED: ZOLPIDEM 5 MG TABLET PO PRN (21:31)
[2021-04-05] MEDS: diphenhydrAMINE 25 MG CAPSULE PO PRN (21:42)
[2021-04-05] MEDS: NICOTINE 14 MG PATCH TOP SCH (23:31)
[2021-04-05] MEDS: SODIUM CHLORIDE FLUSH 0.9% 10 ML SYRINGE IVP SCH (23:50)
[2021-04-06] MEDS: oxyCODONE 5 MG TABLET PO PRN ×4 (02:37→22:37)
[2021-04-06 05:39] LABS: BASOPHILS % (AUTO) 0.2 %; EOSINOPHILS # (AUTO) 0.1 10^3/uL (0.0-0.7); EOSINOPHILS % (AUTO) 0.5 %; HCT - HEMATOCRIT 30.1 % (37.0-47.0); HGB - HEMOGLOBIN 9.7 g/dL (12.0-16.0); LYMPHOCYTES # (AUTO) 2.7 10^3/uL (1.5-3.5); LYMPHOCYTES % (AUTO) 21.2 %; MEAN CORPUSCULAR HEMOGLOBIN 28.3 pg (27.0-31.0); MEAN CORPUSCULAR HGB CONC 32.2 g/dL (32.0-36.0); MEAN CORPUSCULAR VOLUME 87.8 fL (81.0-99.0); MEAN PLATELET VOLUME 12.8 fL (7.9-10.8); MONOCYTES # (AUTO) 0.9 10^3/uL (0.0-1.0); MONOCYTES % (AUTO) 7.1 %; NEUTROPHILS # (AUTO) 9.1 10^3/uL (1.5-6.6); NEUTROPHILS % (AUTO) 70.7 %; PLT - PLATELET COUNT 173 10^3/uL (130-450); RED BLOOD COUNT 3.43 10^6/uL (4.20-5.40); RED CELL DISTRIBUTION WIDTH 13.9 % (12.0-15.0); WHITE BLOOD COUNT 12.8 x10^3/uL (4.8-10.8)
[2021-04-06] MEDS: SODIUM CHLORIDE FLUSH 0.9% 10 ML SYRINGE IVP SCH ×3 (05:55→18:53)
[2021-04-06] MEDS: KETOROLAC 15 MG/ML VIAL IVP SCH ×2 (05:55→12:55)
[2021-04-06] MEDS ORDERED: SERTRALINE 50 MG TABLET PO SCH (09:00)
[2021-04-06] MEDS: ACETAMINOPHEN 500 MG TABLET PO SCH ×3 (09:26→17:58)
[2021-04-06] MEDS: DOCUSATE SODIUM 100 MG CAPSULE PO SCH ×2 (09:26→20:19)
--- NOTE | 2021-04-06 13:20 | PROVIDER PROGRESS NOTE ---
Subjective - General Admit Date: 04/05/21 Procedure Date: 04/05/21 Post Op Days: 1 - Review of Systems Wound/Incisions: positive: Dressing dry and intact General: positive: No symptoms, Fatigue HEENT: positive: No symptoms Pulmonary: positive: No symptoms Cardiovascular: positive: No symptoms Gastrointestinal: positive: Flatus Genitourinary: positive: No symptoms Musculoskeletal: positive: No symptoms Skin: positive: No symptoms - Other Other Information/Narrative: Patient is doing well. Pain is well controlled. Patient is ambulating, urinating, tolerating a regular diet without difficulty. Patient is breast feeding. Objective - Patient Data Reviewed Vital Signs: Yes Vital Signs: Vital Signs x48h Temp Pulse Resp BP Pulse Ox 04/06/21 12:46 98.2 F 83 17 130/83 H 99 04/06/21 09:34 98.4 F 91 18 130/72 98 04/06/21 07:02 18 04/06/21 06:06 16 Weight: Weight 04/04/21 04/05/21 04/06/21 23:59 23:59 23:59 Weight (kg) 93.44 kg Intake & Output: Intake and Output Totals x24h 04/04/21 04/05/21 04/06/21 23:59 23:59 23:59 Intake Total 2300 300 Output Total 850 475 Balance 1450 -175 - Lab Results Lab Results: 04/06/21 05:20 Other Lab Results: Lab Results x24hrs 04/06/21 Range/Units 05:20 WBC 12.8 H (4.8-10.8) x10^3/uL RBC 3.43 L (4.20-5.40) 10^6/uL Hgb 9.7 L (12.0-16.0) g/dL Hct 30.1 L (37.0-47.0) % MCV 87.8 (81.0-99.0) fL MCH 28.3 (27.0-31.0) pg MCHC 32.2 (32.0-36.0) g/dL RDW 13.9 (12.0-15.0) % Plt Count 173 (130-450) 10^3/uL MPV 12.8 H (7.9-10.8) fL Neut # (Auto) 9.1 H (1.5-6.6) 10^3/uL Lymph # (Auto) 2.7 (1.5-3.5) 10^3/uL [place] # (Auto) 0.9 (0.0-1.0) 10^3/uL Eos # (Auto) 0.1 (0.0-0.7) 10^3/uL Baso # (Auto) 0.0 (0.0-0.1) 10^3/uL Absolute Nucleated RBC 0.00 x10^3/uL Nucleated RBC % 0.0 /100WBC - Current Medications Current Medications: Current Medications Generic Name Dose Route Start Last Admin Trade Name Freq PRN Reason Stop Dose Admin Acetaminophen 1,000 mg 04/05/21 17:00 04/06/21 09:26 Acetaminophen 500 Mg Tablet PO 1,000 mg Q8H BJ Administration Diphenhydramine HCl 50 mg 04/05/21 21:30 04/05/21 21:42 Diphenhydramine 25 Mg Capsule PO 50 mg QPM PRN Administration Insomnia Docusate Sodium 100 mg 04/05/21 21:00 04/06/21 09:26 Docusate Sodium 100 Mg Capsule PO 100 mg BID BJ Administration Lactated Ringer's 1,000 mls @ 125 mls/hr 04/05/21 08:00 04/05/21 19:00 Lr IV Infused .Q8H BJ Infusion Nicotine 1 patch 04/05/21 19:00 04/05/21 23:31 Nicotine 14 Mg Patch TOP 1 patch DAILY BJ Administration Oxycodone HCl 5 mg 04/05/21 16:07 04/06/21 09:26 Oxycodone 5 Mg Tablet PO 5 mg Q4HR PRN Administration PAIN Sodium Chloride 10 ml 04/05/21 17:00 04/06/21 10:59 Sodium Chloride Flush 0.9% 10 Ml Syringe IVP Not Given 0100,0900,1700 BJ - Physical Exam Wound/Incisions: positive: Dressing dry and intact General Appearance: positive: No acute distress Respiratory: positive: No respiratory distress, Breath sounds nml. negative: Wheezes, Rales, Rhonchi Cardiovascular: positive: Regular rate & rhythm, No murmur, No gallop Abdomen: positive: Nml bowel sounds, Other (Fundus is firm and below the umbilicus. Normal post-op day one tenderness to palpation.) Extremities: positive: Nml appearance, No pedal edema, Calf tenderness Neurologic/Psychiatric: positive: Oriented x3, Mood/affect nml Impression/Plan - Problem List Problem List: Post-Op day ! Repeat Low Transverse Section. Doing well. P- Continue current orders except discontinue CBC for tomorrow morning. Consider discharge tomorrow.
[2021-04-06] MEDS: NICOTINE 14 MG PATCH TOP SCH (13:26)
[2021-04-06] MEDS: IBUPROFEN 600 MG TABLET PO SCH (19:03)
[2021-04-06] MEDS: diphenhydrAMINE 25 MG CAPSULE PO PRN (20:19)
[2021-04-07] MEDS: oxyCODONE 5 MG TABLET PO PRN ×3 (03:57→12:46)
[2021-04-07] MEDS: ACETAMINOPHEN 500 MG TABLET PO SCH ×2 (03:58→12:45)
[2021-04-07] MEDS: IBUPROFEN 600 MG TABLET PO SCH (08:47)
[2021-04-07] MEDS: DOCUSATE SODIUM 100 MG CAPSULE PO SCH (08:47)
--- NOTE | 2021-04-07 12:03 | DISCHARGE SUMMARY ---
Discharge Summary Admit Date: 04/05/21 Discharge Date: 04/07/21 Discharging Provider: Bogdan Nolasco DO Condition at Discharge: Good Discharge Facility [facility]: [facility] - DIAGNOSES Admission Diagnoses: IUP 39 0/7 with contractions, Previous Section times one. Discharge Diagnoses with Status of Each Condition: S/POD#2 Repeat Low Transverse . - HPI History of Present Illness: 35yo 39 0/7 presented with Contractions. Previous Section in 2016. Patient had been having conrtractions since the day before. Patient had care with [facility]. GBS was positive. Patient had consumed solid food at 0500. - HOSPITAL COURSE Hospital Course: Patient was admitted and placed on surgery schedule for Repeat Section. Patient tolerated the procedure well. Patient had spinal anesthesia with Duramorph and a block after the procedure for pain control. Patient had excellent pain control. Patient had routine post-operative course. Patient was ambulating, urinating and breast feeding on post-op day one. Patient was to lerating a regular diet. Her WBC, HCT and HGB all remained stable. Vital signs remained stable and within normal ranges. Post-op day 2 patient is doing well and desires to be discharged to home. Patient is tolerating a regular diet, ambulating and urinating without difficulty. Pain is well controlled on Oxycodone 5mg, Motrin 600mg and Tylenol. - ALLERGIES Allergies/Adverse Reactions: Allergies Allergy/AdvReac Type Severity Reaction Status Date / Time indomethacin Allergy Intermediate Itching Verified 05/01/15 08:40 phenazopyridine HCl * Allergy Unknown Unknown Verified 05/01/15 08:40 [From Pyridium] - MEDICATIONS Home Medications: Ambulatory Orders Medication Instructions Recorded Confirmed Ibuprofen 600 mg PO Q6HR PRN #30 tablet 01/26/15 05/01/15 Omeprazole 20 mg PO DAILY 04/28/15 04/05/21 raNITIdine HCL [Zantac 75] 75 mg PO DAILY PRN 04/28/15 05/01/15 Ibuprofen [Ibuprofen Ib] 800 mg PO Q6HR PRN #30 tab.chew 02/19/16 oxyCODONE/ACET 5/325 [Percocet 5 1 each PO Q6H PRN #30 tablet 02/19/16 mg/325 mg] Lorazepam [Ativan] 1 mg PO Q6HR PRN #20 tablet 02/24/16 Ondansetron Odt [Zofran] 4 mg TL Q6H PRN #10 tablet 02/24/16 - PHYSICAL EXAM AT DISCHARGE General Appearance: positive: No acute distress Respiratory: positive: Breath sounds nml. negative: Wheezes, Rales, Rhonchi Cardiovascular: positive: Regular rate & rhythm, No murmur, No gallop Abdomen: positive: Non-tender, Nml bowel sounds, Other (Incision is clean, dry and intact without erythema or drainage. Fundus is firm and below the umbilicus.) Skin: positive: Color nml, No rash Extremities: positive: No pedal edema. negative: Calf tenderness Neurologic/Psychiatric: positive: Oriented x3, Mood/affect nml - LABS Result Diagrams: 04/06/21 05:20 - FOLLOW UP Follow Up: Patient to follow-up in clinic in one week. Pelvic rest. No driving until she can slam on her brakes. No lifting more than 10 pounds except infant in carrier. Call for fever, chills, nausea, vomiting, excessive vaginal bleeding, headaches, blurred vision or any concerns. Regular diet. - TIME SPENT Time Spent in Discharge (Minutes): 30
--- NOTE | 2021-04-07 12:35 | Discharge Plan ---
Discharge Plan Problem Reviewed?: Yes Disposition: Home, Self Care Condition: Good Prescriptions: Ibuprofen [Motrin] 600 mg PO Q6H #40 tablet oxyCODONE [Roxicodone] 5 mg PO Q6H PRN #20 tablet PRN Reason: Pain Diet: Regular Shower Restrictions: No (Keep back to shower and cover incision for 1 week) Driving Restrictions: Yes (No driving until she can slam on her brakes and is not using narcotics.) Weight Bearing: Full Weight No Smoking: If you smoke, Please STOP! Call for help.
[2021-04-16 10:28] VITALS: BP 135/87
== END 2021-04-07 13:23 | disposition home or self-care (01) | DRG 788 ==
LOC: WFO 06:32 → FBP 06:34 → WFO 09:19 → FBP 09:20
PROVIDERS: ADMIT Obstetrics & Gynecology; ATTEND Obstetrics & Gynecology
PROC: 10D00Z1 Extraction of Products of Conception, Low, Open Approach (ICD-10-PCS; principal; 2021-04-05 14:45)
DX: O34.211 Maternal care for low transverse scar from previous cesarean delivery (principal); O77.0 Labor and delivery complicated by meconium in amniotic fluid; Z3A.39 39 weeks gestation of pregnancy; Z37.0 Single live birth; O99.334 Smoking (tobacco) complicating childbirth; F17.210 Nicotine dependence, cigarettes, uncomplicated; O99.824 Streptococcus B carrier state complicating childbirth
CPT/HCPCS: 36415; 59025; 80306; 85025; 86850; 86900; 86901; 99215; A9270; J2274; J7120

== ENCOUNTER 2021-04-28 11:15 | Outpatient (CLI) | payer MEDICAID ==
[2021-04-28 20:06] LABS: BACTERIAL VAGINOSIS DNA POSITIVE (NEGATIVE); CANDIDA GLABRATA DNA NEGATIVE (NEGATIVE); CANDIDA GROUP DNA NEGATIVE (NEGATIVE); CANDIDA KRUSEI DNA NEGATIVE (NEGATIVE); TRICHOMONAS VAGINALIS DNA NEGATIVE (NEGATIVE)
== END 2021-04-28 23:59 | disposition home or self-care (01) ==
LOC: LAB.WC 11:15
PROVIDERS: ATTEND Obstetrics & Gynecology
DX: N76.0 Acute vaginitis (principal)
CPT/HCPCS: 87661; 87801

== ENCOUNTER 2021-09-28 08:11 | Emergency (ER) | payer MEDICAID ==
[2021-09-28] MEDS ORDERED: ERYTHROMYCIN OPHTH OINT 1 GM TUBE LEFTEYE STA (08:56)
[2021-09-28] MEDS ORDERED: PROPARACAINE 0.5% OPHTH DROPS 15 ML LEFTEYE STA (08:59)
--- NOTE | 2021-09-28 09:00 | ED Physician Documentation ---
PD HPI HEENT - Stated complaint Stated Complaint: L EYE PAIN/SWELLING - Chief complaint Chief Complaint: Heent - Additional information Additional information: Patient is 36-year-old female presenting with left eye pain and swelling. Reports swelling began yesterday afternoon. This was after some gardening at home. Denies contact lens use or bifocal use. Denies any specific injury to the eye. Endorses for swelling and pain. Does state that pain is rated worse with extraocular motion. Reports the pain is exacerbated by light. Otherwise reports normal vision in the affected eye. Review of Systems Constitutional: denies: Fever Eyes: reports: Photophobia, Irritation. 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: Ovarian cysts : Kidney stones HEENT: None Psych: Anxiety, Panic attacks, Claustrophobia Musculoskeletal: None Derm: None - Past Surgical History Past Surgical History: Yes General: Appendectomy Ortho: Rotator cuff repair /CARDROOM PLASTIC CARD GRADER: section, LEEP (Cervical surgery), Other Neuro: Other HEENT: Tonsil/Adenoidectomy - Present Medications Home Medications: Ambulatory Orders Medication Instructions Recorded Confirmed Erythromycin Base [Erythromycin 1 applic OP Q6HR 7 Days #3.5 gm 09/28/21 Ophthalmic Ointment] clindamycin HCL [Cleocin HCl] 450 mg PO TID 7 Days #21 cap 09/28/21 - Allergies Allergies/Adverse Reactions: Allergies Allergy/AdvReac Type Severity Reaction Status Date / Time indomethacin Allergy Intermediate Itching Verified 09/28/21 08:15 phenazopyridine HCl * Allergy Unknown Unknown Verified 09/28/21 08:15 [From Pyridium] - Social History Does the pt smoke?: Yes Smoking Status: Current every day smoker Does the pt drink ETOH?: Yes Does the pt have substance abuse?: No - Immunizations Immunizations are current?: Yes - POLST Patient has POLST: No PD ED PE NORMAL - General General: Alert and oriented X 3 - HEENT HEENT: Atraumatic, Moist mucous membranes, Pharynx benign, Other (Prominent conjunctival injections to the left eye. Pupils are equal, round and reactive. Extraocular motion is intact however patient reports pain with H test. Slight disc conjugation of gaze appreciated.) - Neck Neck: Supple, no meningeal sign, No bony TTP, No JVD - Respiratory Respiratory: No respiratory distress - Female Female : Deferred - Rectal Rectal: Deferred Results - Vitals Vitals: Vital Signs - 24 hr 09/28/21 09/28/21 08:16 12:27 Temperature 36.7 C 36.6 C Heart Rate 83 68 Respiratory 19 16 Rate Blood Pressure 144/87 H 116/78 O2 Saturation 98 98 Oxygen O2 Source Room air - Labs Labs: Laboratory Tests 09/28/21 09/28/21 09:02 09:02 WBC 8.5 RBC 4.61 Hgb 13.6 Hct 41.7 MCV 90.5 MCH 29.5 MCHC 32.6 RDW 14.5 Plt Count 204 MPV 11.1 H Neut # (Auto) 5.0 Lymph # (Auto) 2.6 [place] # (Auto) 0.7 Eos # (Auto) 0.1 Baso # (Auto) 0.1 Absolute Nucleated RBC 0.00 Nucleated RBC % 0.0 Sodium 135 Potassium 4.0 Chloride 104 Carbon Dioxide 25 Anion Gap 6.0 BUN 11 Creatinine 0.7 Estimated GFR (MDRD) 94 Glucose 95 Calcium 8.6 Total Bilirubin 1.0 AST 12 ALT 10 Alkaline Phosphatase 74 Total Protein 7.0 Albumin 4.4 Globulin 2.6 Albumin/Globulin Ratio 1.7 PD MEDICAL DECISION MAKING - ED course Complexity details: reviewed results ED course: Patient is 36-year-old female presenting to the emergency department with left eye swelling. Afebrile, hemodynamic stable and arrival to the emergency department. Soft tissue edema noted in the preorbital space around the left eye. Some pain reported with extraocular motion. Normal visual acuity in the left eye but some photophobia appreciated. Fluorescein exam was not possible at this facility at this time as there is no fluorescein available in the entire hospital however Toro-Pen measurement was obtained with average of [address] scan of her orbits did demonstrate some possible areas of infection associated with her lacrimal gland. At this time I will initiate course of clindamycin as well as topical erythromycin. Encouraged use Motrin, Tylenol, cold compresses as needed at home. Had a long and detailed discussion with the patient about return precautions prior to discharge. Departure - Departure Disposition: 01 Home, Self Care Clinical Impression: Periorbital cellulitis of left eye, Conjunctivitis of left eye Instructions: ED Cellulitis Facial Prescriptions: Erythromycin Base [Erythromycin Ophthalmic Ointment] 1 applic OP Q6HR 7 Days #3.5 gm clindamycin HCL [Cleocin HCl] 450 mg PO TID 7 Days #21 cap Comments: Thank you for allowing us to care for you today would be general. I would like you to begin some oral and topical antibiotics for your left eye. Motrin and Tylenol are excellent medications to take at home for pain control. Cold washcloths or compresses over your eye Can also be very helpful. Please make a follow-up appointment with your primary care doctor soon as possible. If it anytime you develop any new or worsening symptoms please return to the emergency department. Discharge Date/Time: 09/28/21 12:29
[2021-09-28 09:08] LABS: BASOPHILS # (AUTO) 0.1 10^3/uL (0.0-0.1); BASOPHILS % (AUTO) 0.7 %; EOSINOPHILS # (AUTO) 0.1 10^3/uL (0.0-0.7); EOSINOPHILS % (AUTO) 1.4 %; HCT - HEMATOCRIT 41.7 % (37.0-47.0); HGB - HEMOGLOBIN 13.6 g/dL (12.0-16.0); LYMPHOCYTES # (AUTO) 2.6 10^3/uL (1.5-3.5); LYMPHOCYTES % (AUTO) 30.4 %; MEAN CORPUSCULAR HEMOGLOBIN 29.5 pg (27.0-31.0); MEAN CORPUSCULAR HGB CONC 32.6 g/dL (32.0-36.0); MEAN CORPUSCULAR VOLUME 90.5 fL (81.0-99.0); MEAN PLATELET VOLUME 11.1 fL (7.9-10.8); MONOCYTES # (AUTO) 0.7 10^3/uL (0.0-1.0); MONOCYTES % (AUTO) 8.3 %; NEUTROPHILS % (AUTO) 59.1 %; PLT - PLATELET COUNT 204 10^3/uL (130-450); RED BLOOD COUNT 4.61 10^6/uL (4.20-5.40); RED CELL DISTRIBUTION WIDTH 14.5 % (12.0-15.0); WHITE BLOOD COUNT 8.5 x10^3/uL (4.8-10.8)
[2021-09-28 09:21] LABS: ALBUMIN 4.4 g/dL (3.2-5.5); ALBUMIN/GLOBULIN RATIO 1.7 (1.0-2.2); CALCIUM 8.6 mg/dL (8.5-10.3); CREATININE 0.7 mg/dL (0.4-1.0)
[2021-09-28] MEDS ORDERED: IOVERSOL 320 100 ML VIAL IVP ONE ×2 (09:35→09:53)
--- NOTE | 2021-09-28 10:20 | CT Report ---
PROCEDURE: ORBITS W INDICATIONS: Concern septal cellulitis CONTRAST: IV CONTRAST: Optiray 320 ml: 100 PO CONTRAST: *NO PO CONTRAST TECHNIQUE: After the administration of intravenous contrast, 2.0 mm axial images acquired through the orbits, wi th coronal reformatting. For radiation dose reduction, the following was used: automated exposure c ontrol, adjustment of mA and/or kV according to patient size. COMPARISON: None. FINDINGS: Image quality: Excellent. Orbits: Globes are symmetrical. The optic nerves are normal in size and enhancement. No retrobulba r masses or fat abnormalities. The extra-ocular muscles are normal and symmetrical in appearance. O ptic chiasm is normal. Mild fat stranding and edema of the left periorbital soft tissues along the la teral aspect with mildly increased enhancement of the left lacrimal gland as compared to the right. Intracranial: The pituitary gland is normal, without sellar or suprasellar masses. Visualized cereb ral hemispheres, brainstem, and spinal cord appear normal. Bones and sinuses: Visualized calvarium and facial bones appear intact. Visualized sinuses and mast oids are clear. IMPRESSION: Mild asymmetric hyperenhancement of the left lacrimal gland with mild left lateral periorbital soft t issue edema. Findings could represent cellulitis due to infection or potentially chemical irritation. Reviewed by: Aníbal Hooks MD on 09/28/2021 10:18 AM PDT Approved by: Aníbal Hooks MD on 09/28/2021 10:18 AM PDT Station ID: [id number]
[2021-09-28] MEDS ORDERED: CLINDAMYCIN 150 MG CAPSULE PO STA (12:15)
[2021-09-28 12:29] VITALS: BP 116/78
== END 2021-09-28 12:29 | disposition home or self-care (01) ==
LOC: ED 08:11
DX: L03.213 Periorbital cellulitis (principal); H10.9 Unspecified conjunctivitis; F17.200 Nicotine dependence, unspecified, uncomplicated
CPT/HCPCS: 36415; 70481; 80053; 85025; 99284; A9270; J3490; Q9967

== ENCOUNTER 2023-05-12 08:00 | Outpatient (CLI) | payer MEDICAID | END 2023-05-12 23:59 | disposition home or self-care (01) | LOC: LAB.WC 08:00 | PROVIDERS: ATTEND Nurse Practitioner | DX: O92.6 Galactorrhea (principal) | CPT/HCPCS: 87070; 87205 ==

== ENCOUNTER 2023-05-15 07:43 | Outpatient (CLI) | payer MEDICAID | END 2023-05-15 07:44 | disposition home or self-care (01) | LOC: LAB 07:43 | PROVIDERS: ATTEND Nurse Practitioner | DX: O92.6 Galactorrhea (principal) | CPT/HCPCS: 36415; 84146 ==

== ENCOUNTER 2023-06-01 07:46 | Outpatient (CLI) | payer MEDICAID ==
--- NOTE | 2023-06-02 10:45 | Ultrasound Report ---
LIMITED ULTRASOUND OF RIGHT BREAST: 06/01/2023 CLINICAL: Additional images for possible mass seen on this annual exam. Comparison is made to exams dated: 09/20/2018 mammogram, 09/20/2018 ultrasound biopsy, 09/20/2018 ultra sound, and 09/19/2018 mammogram - [facility]. Color flow ultrasound of the right breast 8 o'clock region was performed. Kang scale images of the r eal-time examination were reviewed. There is a 3.9 cm x 1.7 cm x 3.1 cm oval heterogenous mass with a circumscribed margin in the right b reast at 8 o'clock, 3 cm from the nipple. Previously the mass measured 2.4 x 0.9 x 2.5 cm. Color renetta w imaging demonstrates that there is vascularity present. Biopsy clip is not visualized sonographica lly. IMPRESSION: SUSPICIOUS OF MALIGNANCY Right breast 3.9 cm oval circumscribed mass demonstrating interval growth. Although previously biopsi ed, clip is not definitely within the mass and per EMR note, prior pathology demonstrated non-prolife rative fibrocystic change. Finding is suspicious. Recommend ultrasound guided core biopsy. Findings and recommendations were discussed with the patient by Dr. Baird at time of imaging comp letion. This exam was interpreted at Station ID: [id number]. Electronically Signed By: Monica Cedillo M.D., PH.D eb/:06/01/2023 11:15:26 Ultrasound BI-RADS: 4 Suspicious for malignancy BI-RADS CATEGORY: (4) - 4 Biopsy [id number] Immediate follow-up LATERALITY: (R)
--- NOTE | 2023-06-02 10:45 | Ultrasound Report ---
LIMITED ULTRASOUND OF LEFT BREAST: 06/01/2023 CLINICAL: Nipple milky discharge, left breast, not bloody. Comparison is made to exams dated: 09/20/2018 mammogram, 09/20/2018 ultrasound biopsy, 09/20/2018 ultra sound, and 09/19/2018 mammogram - [facility]. Color flow ultrasound of the left breast retroareolar was performed. Kang scale images of the real- time examination were reviewed. No sonographic abnormality in the retroareolar region. IMPRESSION: NEGATIVE No sonographic abnormality in the retroareolar region. No mammographic or targeted sonographic eviden ce of malignancy. Recommend routine screening mammogram starting at age 40. Nipple discharge that is non-spontaneous and bilateral or from multiple ducts in the same breast is t ypically benign or physiologic. Clinical follow-up is recommended, and further management of nipple d ischarge should be based on the results of clinical evaluation. If nipple discharge persists and/or i ncreases in clinical suspicion, further clinical evaluation should be considered. Findings and recommendations were conveyed to the patient during today's evaluation. This exam was interpreted at Station ID: [id number]. Electronically Signed By: Monica Cedillo M.D., PH.D eb/:06/01/2023 11:20:35 Ultrasound BI-RADS: 1 Negative BI-RADS CATEGORY: (1) - 1 Unspecified - other recall n/a LATERALITY: (B)
--- NOTE | 2023-06-02 10:45 | Mammography Report ---
BILATERAL DIGITAL DIAGNOSTIC MAMMOGRAM 3D/2D WITH SPOT COMPRESSION: 06/01/2023 CLINICAL: Non spontaneous Left Nipple discharge, non-bloody. Comparison is made to exams dated: 09/20/2018 mammogram and [facility] Both breasts are heterogeneously dense, which may obscure small masses (category c / 51-75% glandular tissue). There is a 4.2 cm oval mass with a circumscribed margin in the right breast at 8 o'clock anterior dep th corresponding to previously biopsied mass. The biopsy clip at the inferomedial edge of the mass. P reviously it measured 2.8 cm on 09/19/2018. No mammographic abnormality is seen in the subareolar region of the left breast on additional mammogr aphic views. No other significant masses, calcifications, or other findings are seen in either breast. IMPRESSION: INCOMPLETE: NEEDS ADDITIONAL IMAGING EVALUATION 1) Right breast 4.2 cm oval circumscribed mass, previously biopsied, demonstrating interval growth. A n ultrasound is recommended for further evaluation and is scheduled to immediately follow this examin ation. 2) Left breast: No mammographic evidence of malignancy. An ultrasound is recommended for further eval uation of the subareolar region for left nipple discharge and is scheduled to immediately follow this examination. Based on the Tyrer Cuzick model (a risk assessment model) the patients lifetime risk is 16.3% and he r 10 year risk is 1.7%. According to the ACR, ACS, and NCCN guidelines, an annual breast MRI exam hali ng with mammogram is recommended if the patients lifetime risk is 20% or greater. This exam was interpreted at Station ID: [id number]. NOTE: For mammograms, a report in lay terms will be sent to the patient. Approximately 15% of breast malignancies will not be visualized mammographically. In the management of a palpable breast mass, a negative mammogram must not discourage biopsy of a clinically suspicious lesion. Electronically Signed By: Monica Cedillo M.D., PH.D eb/:06/01/2023 10:59:37 ACR BI-RADS Category 0: Incomplete 3340F PARENCHYMAL PATTERN: (D) - The breast(s) demonstrate(s) heterogeneously dense fibroglandular teer jett. BI-RADS CATEGORY: (0) - 0 Ultrasound [id number] Immediate follow-up LATERALITY: (B)
== END 2023-06-01 07:47 | disposition home or self-care (01) ==
LOC: DI 07:46
PROVIDERS: ATTEND Nurse Practitioner
DX: O92.6 Galactorrhea (principal); R92.333 Mammographic heterogeneous density, bilateral breasts

== ENCOUNTER 2023-06-21 12:43 | Outpatient (CLI) | payer MEDICAID ==
[2023-06-21] MEDS ORDERED: LIDOCAINE-MPF 1% 5 ML VIAL ONE (12:54)
[2023-06-21] MEDS ORDERED: LIDOCAINE 1%-EPI 1:100000 50 ML VIAL ONE (12:54)
[2023-06-21] MEDS ORDERED: LIDOCAINE-MPF 1% 5 ML VIAL TD ONE (15:51)
[2023-06-21] MEDS ORDERED: LIDOCAINE 1%-EPI 1:100000 50 ML VIAL SUBQ SCH (16:00)
[2023-06-21] MEDS ORDERED: LIDOCAINE 1%-EPI 1:100000 50 ML VIAL SUBQ ONE (16:00)
--- NOTE | 2023-06-22 08:27 | Mammography Report ---
UNILATERAL RIGHT DIGITAL DIAGNOSTIC MAMMOGRAM POST-PROCEDURE IMAGING FOR MARKER PLACEMENT: 06/21/2023 CLINICAL: Post right breast ultrasound biopsy clip placement imaging. Comparison is made to exams dated: 06/01/2023 ultrasound, 06/01/2023 mammogram, and 09/20/2018 mammogra m - [facility]. The right breast is heterogeneously dense, which may obscure small masses (category c / 51-75% glandu lar tissue). There is a coil marker clip in the appropriate position in the right breast at 8 o'clock anterior dep th at the biopsy site. Prior right breast clip noted. IMPRESSION: POST PROCEDURE MAMMOGRAM FOR MARKER PLACEMENT There was a successful coil marker clip placement in the right breast anterior depth. This exam was interpreted at Station ID: [id number]. Electronically Signed By: Jaya Simmons M.D. slc/:06/21/2023 14:16:21 ACR BI-RADS Category Post-procedure mammogram for marker placement PARENCHYMAL PATTERN: (D) - The breast(s) demonstrate(s) heterogeneously dense fibroglandular tere jett. BI-RADS CATEGORY: () - Unspecified - other recall n/a LATERALITY: (B)
--- NOTE | 2023-06-28 12:59 | Ultrasound Report ---
ULTRASOUND GUIDED BIOPSY RIGHT BREAST USING VACUUM DEVICE WITH MARKING DEVICE INSERTED AND POST DIGIT AL MAMMOGRAPHIC AND ULTRASOUND IMAGIN06/21/2023 CLINICAL: Right breast mass. PATIENT CONSENT: Risks (minor bleeding, infection, vasovagal reaction and repeat procedure), benefits and alternatives were explained to the patient and written informed consent was obtained. Correlation is made to exams dated: 06/01/2023 ultrasound, 06/01/2023 mammogram, 09/20/2018 mammogram, 09/20/2018 ultrasound biopsy, 09/20/2018 ultrasound, and 09/19/2018 mammogram - [facility]. An ultrasound guided biopsy using real-time ultrasound was performed for the 4.1 cm x 3.3 cm x 1.6 cm circumscribed oval mass located in the right breast at 8 o'clock anterior depth 3 cm from the nipple . This was described on the previous ultrasound report. The skin was prepped in the usual manner. Local anesthetic was administered to the access site. A skin zain was made in the breast. The abnor mality was approached from the lateral aspect. A biopsy needle was placed adjacent to the abnormalit y under ultrasound guidance. Once the needle was documented to be in the correct location, four core s were obtained using the Mammotome biopsy system. The patient received additional local anesthetic during the procedure. A hydromark clip was inserted into the biopsy cavity. A skin adhesive and a s terile dressing were applied to the access site. Post procedure digital mammographic and ultrasound imaging was obtained. The specimens were sent to the laboratory for pathological analysis. IMPRESSION: ULTRASOUND GUIDED BIOPSY BENIGN Ultrasound guided biopsy of the 4.1 cm x 3.3 cm x 1.6 cm mass in the right breast at 8 o'clock anteri or depth 3 cm from the nipple was successful with no apparent post procedure complications. Patholog y indicates benign tubular adenoma (TA). Pathology results are concordant with imaging findings. A follow-up right mammogram and an ultrasound in 6 months is recommended to demonstrate stability. This exam was interpreted at Station ID: [id number]. Jaya Brooks M.D. [facility] [place],aty/:06/23/2023 19:25:01 BI-RADS CATEGORY: () - Mammo and [place] [id number] 6 month follow-up LATERALITY: (R)
== END 2023-06-21 12:44 | disposition home or self-care (01) ==
LOC: DI 12:43
PROVIDERS: ATTEND Nurse Practitioner
DX: D24.1 Benign neoplasm of right breast (principal); R92.331 Mammographic heterogeneous density, right breast
CPT/HCPCS: 19083; 77065; J3490

== ENCOUNTER 2023-07-31 06:58 | Day surgery (SDC) | payer MEDICAID ==
--- NOTE | 2023-07-31 06:53 | ANESTHESIA ---
Pre-Anesthesia VS, & Labs - Diagnosis Tubular adenoma@R - Procedure R excisional breast biopsy Height: 5 ft 8 in - NPO >8 hours - Is Patient ?: No - Lab Results Lab results reviewed: Yes Home Medications and Allergies Home Medications: Ambulatory Orders Acetaminophen/Diphenhydramine [Pain Relief Pm 25-500 mg Cplt] 2 each PO QPM 07/21/23 Acetaminophen/Diphenhydramine [Pain Relief Pm 25-500 mg Cplt] 2 each PO QPM 07/21/23 Allergies/Adverse Reactions: Allergies Allergy/AdvReac Type Severity Reaction Status Date / Time indomethacin Allergy Intermediate Itching Verified 09/28/21 08:15 phenazopyridine HCl * Allergy Unknown Unknown Verified 09/28/21 08:15 [From Pyridium] Anes History & Medical History - Anesthetic History Anesthesia Complications: reports: No previous complications Family history of Anesthesia Complications: Denies Family history of Malignant Hyperthermia: Denies - Medical History Cardiovascular: reports: None Pulmonary: reports: Sleep apnea Gastrointestinal: reports: GERD, Hemorrhoids Urinary: reports: Chronic bladder infection, Kidney stones Musculoskeletal: reports: Osteoarthritis, Chronic back pain Endocrine/Autoimmune: reports: None Blood Disorders: reports: None Skin: reports: None Smoking Status: Current every day smoker - Surgical History General: reports: Appendectomy, Other Eyes Ears Nose Throat (EENT): reports: Tonsil/Adenoidectomy Gynecologic: reports: section Neurologic: reports: Other Orthopedic: reports: Rotator cuff repair, Other Exam General: Alert, Oriented x3 Dental: WNL Mouth Openin Fingerbreadth Neck Mobility: Normal Mallampati classification: II Thyromental Distance: 4-6 cm Respiratory: Lungs clear, Normal breath sounds Cardiovascular: Regular rate Neurological: Normal speech Mental/Cognitive Status: Alert/Oriented X3, Normal for patient Cognitive Status: Within normal limits Plan Anesthesia Type: General Consent for Procedure(s) Verified and Reviewed: Yes Code Status: Attempt Resuscitation ASA classification: 2-Mild systemic disease Is this case an emergency?: No
[~2023-07-31 06:58] MED LIST: ceFAZolin 2 GM VIAL ONE
[2023-07-31] MEDS: LACTATED RINGERS 1,000 ML IV ONE ×2 (07:05→08:56)
[2023-07-31] MEDS ORDERED: MIDAZOLAM 2 MG/2 ML VIAL ONE (07:12)
[2023-07-31] MEDS ORDERED: LIDOCAINE-PF 2% 10 ML AMP SUBQ ONE (07:12)
[2023-07-31] MEDS ORDERED: fentaNYL 100 MCG/2 ML VIAL ONE (07:12)
[2023-07-31] MEDS ORDERED: PROPOFOL 200 MG/20 ML VIAL IVP ONE (07:12)
[2023-07-31] MEDS: ACETAMINOPHEN 500 MG TABLET PO ONE (07:15)
[2023-07-31 07:21] LABS: HCG UR QUAL NEGATIVE
[2023-07-31] MEDS ORDERED: BUPIVACAINE 0.5% PF 10 ML VIAL ONE (07:28)
[2023-07-31] MEDS ORDERED: LIDOCAINE 1%-EPI 1:100000 20 ML MDV ONE (07:28)
[2023-07-31] MEDS ORDERED: DEXAMETHASONE 4 MG/ML VIAL ONE (08:01)
[2023-07-31] MEDS ORDERED: ONDANSETRON 4 MG/2 ML VIAL ONE ×2 (08:01→09:12)
[2023-07-31] MEDS ORDERED: METOCLOPRAMIDE 10 MG/2 ML VIAL IVP PRN (08:07)
[2023-07-31] MEDS ORDERED: NALOXONE 0.4 MG/ML VIAL IVP PRN (08:07)
[2023-07-31] MEDS ORDERED: ePHEDrine 50 MG/ML VIAL IVP PRN (08:07)
[2023-07-31] MEDS ORDERED: MORPHINE 2 MG/ML CARPUJECT IVP PRN (08:07)
[2023-07-31] MEDS ORDERED: HYDROmorphone 0.5 MG/0.5 ML SYRINGE IVP PRN ×2 (08:07→08:48)
[2023-07-31] MEDS ORDERED: fentaNYL 100 MCG/2 ML VIAL IVP PRN (08:07)
[2023-07-31] MEDS ORDERED: ATROPINE ABBOJECT 1 MG/10 ML SYRINGE IVP PRN (08:07)
[2023-07-31] MEDS: BUPIVACAINE 0.5% PF 10 ML VIAL SUBQ ONE ×2 (08:28)
[2023-07-31] MEDS: LIDOCAINE 1%-EPI 1:100000 20 ML MDV SUBQ ONE ×2 (08:28)
[2023-07-31] MEDS ORDERED: KETOROLAC 30 MG/ML VIAL ONE (08:39)
[2023-07-31] MEDS ORDERED: ONDANSETRON 4 MG/2 ML VIAL IVP PRN (08:48)
[2023-07-31] MEDS ORDERED: ACETAMINOPHEN 500 MG TABLET PO PRN (08:48)
[2023-07-31] MEDS ORDERED: oxyCODONE 5 MG TABLET PO PRN (08:48)
--- NOTE | 2023-07-31 08:54 | OPERATIVE REPORT ---
Operative Report - General Procedure Date: 07/31/23 Planned Procedure: Right breast, excisional biopsy Pre-Op Diagnosis: right breast right breast mass, history of tubular adenoma Procedure Performed: Right breast, excisional biopsy Post Op Diagnosis: right breast right breast mass, history of tubular adenoma - Procedure Note Primary Surgeon: Dr. Janis Gallo Anesthesia Provider: Dusty Reynoso CRNA Anesthesia Technique: General LMA, Local Pathology: Right breast mass, oriented short superior, long lateral, double anterior, measures 2.5 x 5 x 4 cm Estimated Blood Loss (mL): 3 Indications: The patient has a right breast mass which has been palpable for several years. It has been followed with imaging and has increased in size. The patient also notes the mass is more tender and prominent during her menstrual periods. Due to the size of the mass, and the increase in size, I recommended excisional biopsy. It has been previously biopsied as a tubular adenoma, thought to be a variant of fibroadenoma. We discussed the risks, benefits, and alternatives of excisional biopsy including bleeding, infection, numbness in the area, damage to surrounding structures, upgraded pathology, and the need for further surgeries or procedures. The patient voiced understanding, her questions were answered, and she wished to proceed. A consent was signed by the patient prior to surgery. Findings: 1. Right breast mass measuring 5 x 4 x 2.5 cm excised and oriented, short superior, long lateral, double anterior Complications: None - Other Other Information/Narrative: The patient was taken to the operating room and placed in the supine position. Preop antibiotics were given. ERAS medications were given. The patient was prepped and draped in the usual sterile fashion. A preop surgical timeout was performed. Attention was turned to the patient's right breast. An incision was made following the patient's skin folds, at the 9 o'clock position, N + 4. Skin flaps were raised medially and laterally to the incision. The dissection was carried down to the mass and it was completely excised. The biopsy specimen was removed and oriented with suture on the back table. The specimen was sent to mammography and the biopsy clip was not confirmed to be within the specimen, however the palpable mass had been removed.The edges of the biopsy cavity were inspected and there were no additional palpable abnormalities. Hemostasis was confirmed. The biopsy cavity was irrigated with warm normal saline. The deep dermal tissues were closed with 3-0 Vicryl in an interrupted fashion. The skin was closed with 4-0 Monocryl in a running subcuticular fashion. The patient tolerated the procedure well. There were no complications.
[2023-07-31] MEDS ORDERED: LACTATED RINGERS 1,000 ML IV SCH (09:00)
[2023-07-31] MEDS: ONDANSETRON 4 MG/2 ML VIAL IVP PRN (09:13)
--- NOTE | 2023-07-31 09:50 | ANESTHESIA POST OP EVALUATION ---
Anesthesia Post Eval - Post Anesthesia Eval Vitals: Last Vital Signs Temp 36.6 C 07/31/23 09:42 Pulse 73 07/31/23 09:42 Resp 15 07/31/23 09:42 BP 130/74 07/31/23 09:42 Pulse Ox 100 07/31/23 09:42 O2 Flow Rate 0 07/31/23 07:14 CV Function Including HR & BP: Stable Pain Control: Satisfactory Nausea & Vomiting: Negative Mental Status: Baseline Respiratory Status: Airway Patent Hydration Status: Satisfactory Anesthesia Complications: None
[2023-07-31 09:53] VITALS: O2SAT 100
[2023-07-31 10:15] VITALS: BP 137/85
--- NOTE | 2023-08-02 11:32 | Mammography Report ---
SPECIMEN: 07/31/2023 CLINICAL: Right breast specimen. Correlation is made to exams dated: 06/21/2023 ultrasound biopsy, 06/21/2023 mammogram, 06/01/2023 ul trasound, and 06/01/2023 mammogram - [facility]. Since specimen radiograph demonstrates probable targeted finding. No biopsy clip is visualized within the specimen. Dr. Gallo was notified of the results in the operating room. IMPRESSION: SPECIMEN Please see surgical report for further details. Dr. Gallo was notified of the results in the operati ng room. Future imaging is recommended as follows: 12/21/2023 right mammogram and an ultrasound. This exam was interpreted at Station ID: [id number]. Monica Cedillo M.D., PH.D eb/:08/01/2023 21:54:36 BI-RADS CATEGORY: () - Unspecified - other recall n/a LATERALITY: (B)
== END 2023-07-31 06:59 | disposition home or self-care (01) ==
LOC: SDS 06:58
PROVIDERS: ATTEND Surgery
PROC: 0HBT0ZX Excision of Right Breast, Open Approach, Diagnostic (ICD-10-PCS; principal; 2023-07-31 07:30)
DX: D24.1 Benign neoplasm of right breast (principal); N64.4 Mastodynia; F17.200 Nicotine dependence, unspecified, uncomplicated; G47.33 Obstructive sleep apnea (adult) (pediatric)
CPT/HCPCS: 19120; 76098; 81025; A9270; J7120

== ENCOUNTER 2024-02-28 07:47 | Outpatient (CLI) | payer MEDICAID ==
[2024-02-28 08:10] LABS: BASOPHILS % (AUTO) 0.2 %; EOSINOPHILS # (AUTO) 0.1 10^3/uL (0.0-0.7); EOSINOPHILS % (AUTO) 0.7 %; HCT - HEMATOCRIT 40.2 % (37.0-47.0); HGB - HEMOGLOBIN 12.7 g/dL (12.0-16.0); LYMPHOCYTES # (AUTO) 2.7 10^3/uL (1.5-3.5); LYMPHOCYTES % (AUTO) 31.1 %; MEAN CORPUSCULAR HEMOGLOBIN 28.7 pg (27.0-31.0); MEAN CORPUSCULAR HGB CONC 31.6 g/dL (32.0-36.0); MEAN PLATELET VOLUME 11.6 fL (7.9-10.8); MONOCYTES # (AUTO) 0.4 10^3/uL (0.0-1.0); NEUTROPHILS # (AUTO) 5.4 10^3/uL (1.5-6.6); NEUTROPHILS % (AUTO) 62.8 %; PLT - PLATELET COUNT 247 10^3/uL (130-450); RED BLOOD COUNT 4.42 10^6/uL (4.20-5.40); RED CELL DISTRIBUTION WIDTH 13.1 % (12.0-15.0); WHITE BLOOD COUNT 8.7 x10^3/uL (4.8-10.8)
[2024-02-28 08:25] LABS: ALBUMIN/GLOBULIN RATIO 1.5 (1.0-2.2); ALKALINE PHOSPHATASE 70 IU/L (42-121); ALT ALANINE AMINOTRANSFERASE 9 IU/L (10-60); AST ASPARTATE AMINOTRANSFERASE 11 IU/L (10-42); BILIRUBIN,TOTAL 0.7 mg/dL (0.2-1.0); BUN - BLOOD UREA NITROGEN 12 mg/dL (6-20); CALCIUM 8.6 mg/dL (8.5-10.3); CARBON DIOXIDE - CO2 25 mmol/L (21-32); CHLORIDE 108 mmol/L (101-111); CHOL/HDL RATIO 4.6 (<4.4); CHOLESTEROL 174 mg/dL; CREATININE 0.7 mg/dL (0.6-1.3); GFR - MDRD 93 (>89); GLUCOSE 93 mg/dL (74-104); HDL CHOLESTEROL 38 mg/dL; LDL CHOLESTEROL,CALCULATED 123 mg/dL; LDL/HDL RATIO 3.2 (<4.4); POTASSIUM 3.7 mmol/L (3.5-4.5); SODIUM 140 mmol/L (135-145); TOTAL PROTEIN 6.7 g/dL (6.4-8.9); TRIGLYCERIDES 66 mg/dL; VLDL CHOLESTEROL 13 mg/dL
[2024-02-28 08:39] LABS: THYROID STIMULATING HORMONE 0.52 uIU/mL (0.34-5.60)
== END 2024-02-28 07:48 | disposition home or self-care (01) ==
LOC: LAB 07:47
PROVIDERS: ATTEND Nurse Practitioner Family
DX: K29.70 Gastritis, unspecified, without bleeding (principal); R12 Heartburn; Z83.49 Family history of other endocrine, nutritional and metabolic diseases; E55.9 Vitamin D deficiency, unspecified; F51.04 Psychophysiologic insomnia; F41.9 Anxiety disorder, unspecified
CPT/HCPCS: 36415; 80053; 80061; 82306; 83721; 84443; 85025